=== PATIENT | female | born 1970 | race Caucasian/White ===

== ENCOUNTER → 2016-12-08 | Outpatient (CLI) | payer BC ==
[2016-06-20 21:30] VITALS: BP 145/82
[~2016-12-08] MED LIST: DULO60CA6 PO; Ipratropium/Albuterol Sulfate NEB; PRED5TAB19 PO; VARE1TAB20 PO; ZOLP10TA PO
--- NOTE | 2016-12-09 08:24 | RAD ---
Chest, 2 views, 12/08/2016: History: Shortness of breath Comparison is made to a study from 06/20/2016. The heart size and pulmonary vascularity are normal. No pulmonary infiltrates are seen. There is no evidence of pleural fluid. Mild spurring is present in the spine. IMPRESSION: No acute cardiopulmonary abnormality is detected.
== END | disposition home or self-care (01) ==
LOC: DXRADRC 12:15
PROVIDERS: ATTEND Nurse Practitioner Family
DX: R06.02 Shortness of breath (principal)
CPT/HCPCS: 71020

== ENCOUNTER → 2017-11-15 | Outpatient (CLI) | payer BC ==
[2016-06-20 21:30] VITALS: BP 145/82
[~2017-11-15] MED LIST changes: +IOHEXOL 300 MG/ML 75 ML VIAL. IV ONE
--- NOTE | 2017-11-15 09:17 | RAD ---
Indication: Tobacco use. Technique: CT chest with IV contrast with multiplanar reformats. Comparison: None Findings: Clear neck base. Heart is normal in size. No pericardial or pleural effusion. No axillary, mediastinal or hilar adenopathy. 2 mm nodule is seen in the right middle lobe (series 4 image 61). Central airways are patent. No interstitial abnormalities in the lungs. The visualized sections through the liver, spleen, pancreas, adrenals and kidneys are within normal limits. No suspicious bony lesion. Impression: No interstitial abnormalities. No suspicious pulmonary nodules. PQRS Compliance Statement: One or more of the following individualized dose reduction techniques were utilized for this examination: 1. Automated exposure control 2. Adjustment of the mA and/or kV according to patient size 3. Use of iterative reconstruction technique
--- NOTE | 2017-11-16 16:22 | RAD ---
DATE: 11/15/2017 EXAM: DIGITAL SCREEN BILAT W/CAD HISTORY: Routine screening COMPARISON: None available This study was interpreted with the benefit of Computerized Aided Detection (CAD). The breast parenchyma shows scattered fibroglandular densities. Breast parenchyma level B. FINDINGS: 2-D and 3-D tomosynthesis imaging was performed in CC and MLO projections. A small nodule with a hilar lucency in the axillary tail region of the left breast is compatible with a benign intramammary lymph node. No suspicious breast densities are seen. Minimal benign type calcification is noted. No suspicious microcalcifications are evident. IMPRESSION: There is no mammographic evidence of malignancy in either breast. BI-RADS CATEGORY: 2 BENIGN FINDING(S) RECOMMENDED FOLLOW-UP: 12M 12 MONTH FOLLOW-UP PQRS compliance statement: Patient information was entered into a reminder system with a target due date for the next mammogram. Mammography is a sensitive method for finding small breast cancers, but it does not detect them all and is not a substitute for careful clinical examination. A negative mammogram does not negate a clinically suspicious finding and should not result in delay in biopsying a clinically suspicious abnormality. "Our facility is accredited by the [employer] Mammography Program."
== END | disposition home or self-care (01) ==
LOC: CT 08:03
PROVIDERS: ATTEND Nurse Practitioner Family
DX: Z12.31 Encounter for screening mammogram for malignant neoplasm of breast (principal); Z72.0 Tobacco use
CPT/HCPCS: 71260; 77067; Q9967

== ENCOUNTER 2019-04-07 14:22 | Emergency (ER) | payer MEDICARE, BC ==
[~2019-04-07 14:22] MED LIST changes: -IOHEXOL 300 MG/ML 75 ML VIAL. IV ONE
[2019-04-07 14:35] VITALS: BP 149/103
--- NOTE | 2019-04-07 15:05 | PHYS DOC ---
Past History Past Medical History: Anxiety, Fibromyalgia, Migraines Past Surgical History: No Surgical History Smoking: Cigarettes Alcohol Use: None Drug Use: None Adult General Chief Complaint Chief Complaint: FACE PROBLEM HPI HPI Patient is a 48-year-old female presents with facial pain after falling into her coffee table approximately 36 hours ago. Pain is diffuse but centered around the nose. She is able to breathe through the nose. Denies any nosebleed. Denies any difficulty breathing. Denies any syncopal episode, loss of consciousness, or neck pain. Denies any weakness or numbness in her arms or legs. No significant relief with acetaminophen. Pain is moderate to severe.[] Review of Systems Review of Systems Constitutional: Denies fever or chills [] Eyes: Denies change in visual acuity, redness, or eye pain [] HENT: Denies nasal congestion or sore throat [] Respiratory: Denies cough or shortness of breath [] Cardiovascular: No chest pain or palpitations[] GI: Denies abdominal pain, nausea, vomiting, bloody stools or diarrhea [] : Denies dysuria or hematuria [] Musculoskeletal: Denies back pain or joint pain [] Integument: Denies rash or skin lesions [] Neurologic: Denies headache, focal weakness or sensory changes [] Endocrine: Denies polyuria or polydipsia [] All other systems were reviewed and found to be within normal limits, except as documented in this note. Allergies Allergies Allergies Coded Allergies Type Severity Reaction Last Updated Verified methocarbamol Allergy Intermediate 08/31/14 Yes Physical Exam Physical Exam Constitutional: Well developed, well nourished, no acute distress, non-toxic appearance. [] HENT: Normocephalic, atraumatic, bilateral external ears normal, oropharynx moist, no oral exudates, nose has tenderness to palpation in the proximal portion. There is no septal hematoma. Some congestion and increased flow noises with breathing.. [] Eyes: PERRLA, EOMI, conjunctiva normal, no discharge. [] Neck: Normal range of motion, no tenderness, supple, no stridor. [] Cardiovascular:Heart rate regular rhythm, no murmur [] Lungs & Thorax: Bilateral breath sounds clear to auscultation [] Abdomen: Bowel sounds normal, soft, no tenderness, no masses, no pulsatile mas ses. [] Skin: Warm, dry, no erythema, no rash. [] Back: No tenderness, no CVA tenderness. [] Extremities: No tenderness, no cyanosis, no clubbing, ROM intact, no edema. [] Neurologic: Alert and oriented X 3, normal motor function, normal sensory function, no focal deficits noted. [] Psychologic: Affect normal, judgement normal, mood normal. [] Current Patient Data Vital Signs Vital Signs Date Time Temp Pulse Resp B/P (MAP) Pulse Ox O2 Delivery O2 Flow Rate FiO2 04/07/19 14:35 104 18 100 Room Air EKG EKG [] Radiology/Procedures Radiology/Procedures PROCEDURE: CT MAXILLOFACIAL WO CONTRAST CT MAXILLOFACIAL WO CONTRAST dated 04/07/2019 3:08 PM Indication: Facial pain after falling into a table. Comparison: No comparison is available. Technique: Helical noncontrast images were obtained. Sagittal and coronal reconstructions were performed. One or more of the following individualized dose reduction techniques were utilized for this examination: 1. Automated exposure control 2. Adjustment of the mA and/or kV according to patient size 3. Use of iterative reconstruction technique Findings: There appears to be a slightly depressed fracture of the nasal bone near the tip. No other facial fracture is seen. The nasal septum is deviated some to the right. The orbital floors appear intact. There is some fluid in the sphenoid sinus. The sinuses are otherwise clear. There is some pneumatization of the middle turbinates bilaterally IMPRESSION: Suspected minimally displaced nasal fracture. No other facial fracture. [] Course & Med Decision Making Course & Med Decision Making Pertinent Labs and Imaging studies reviewed. (See chart for details) ED course: Patient arrived, was placed in bed, and tolerated exam well. She was transported to and from radiology with any complications. After the return of the imaging findings, these were discussed with the patient and her partner who voiced understanding. All questions were answered. She was discharged in improved condition Medical decision making: There is no evidence of a septal hematoma. No evidence of additional facial fractures be on the nasal bones. No evidence of nonaccidental trauma. No evidence of intractable pain.[] Dragon Disclaimer Dragon Disclaimer This electronic medical record was generated, in whole or in part, using a voice recognition dictation system. Departure Departure: Impression: Primary Impression: Nasal fracture Disposition: HOME, SELF-CARE Condition: STABLE Referrals: PCP,NO (PCP) Patient Instructions: Nasal Fracture Additional Instructions: Follow-up with your regular doctor in 2 days. If you do not have regular doctor list of local clinics will be provided for you. Return to the ER if worsening pain, fever of more than 101�, or any other concerns. Scripts Oxaprozin (OXAPROZIN) 600 Mg Tablet 600 MG PO BID for pain, #20 TAB Prov: DELFINO JOY DO 04/07/19 Problem Qualifiers Primary Impression: Nasal fracture Encounter type: initial encounter Fracture type: closed Qualified Codes: S02.2XXA - Fracture of nasal bones, initial encounter for closed fracture DELFINO JOY DO Apr 07, 2019 15:05
[2019-04-07] MEDS ORDERED: IBUPROFEN 600 MG TABLET. PO ONE (15:15)
--- NOTE | 2019-04-07 15:29 | RAD ---
CT MAXILLOFACIAL WO CONTRAST dated 04/07/2019 3:08 PM Indication: Facial pain after falling into a table. Comparison: No comparison is available. Technique: Helical noncontrast images were obtained. Sagittal and coronal reconstructions were performed. One or more of the following individualized dose reduction techniques were utilized for this examination: 1. Automated exposure control 2. Adjustment of the mA and/or kV according to patient size 3. Use of iterative reconstruction technique Findings: There appears to be a slightly depressed fracture of the nasal bone near the tip. No other facial fracture is seen. The nasal septum is deviated some to the right. The orbital floors appear intact. There is some fluid in the sphenoid sinus. The sinuses are otherwise clear. There is some pneumatization of the middle turbinates bilaterally IMPRESSION: Suspected minimally displaced nasal fracture. No other facial fracture. Electronically signed by: Vasquez Kevin Jr., MD (04/07/2019 3:26 PM) [facility]
[2019-04-07] MEDS ORDERED: OXAP600T2 PO (15:53)
== END 2019-04-07 15:56 | disposition home or self-care (01) ==
LOC: ER 14:22
DX: S02.2XXA Fracture of nasal bones, initial encounter for closed fracture (principal); M79.7 Fibromyalgia; G43.909 Migraine, unspecified, not intractable, without status migrainosus; F17.210 Nicotine dependence, cigarettes, uncomplicated; Z88.8 Allergy status to other drugs, medicaments and biological substances; W17.89XA Other fall from one level to another, initial encounter; Y93.89 Activity, other specified; Y92.89 Other specified places as the place of occurrence of the external cause; Y99.8 Other external cause status
CPT/HCPCS: 70486; 99284-25

== ENCOUNTER 2019-05-22 16:30 | Emergency (ER) | payer OTHER, BC, MEDICARE ==
[~2019-05-22] VITALS: Ht 167.6 cm; Wt 63.5 kg
[~2019-05-22 16:30] MED LIST changes: +OXAP600T2 PO
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
[2019-05-22] MEDS ORDERED: KETOROLAC 15 MG/ML VIAL. IV ONE (17:00)
[2019-05-22 17:06] VITALS: BP 161/115
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
[2019-05-22] MEDS ORDERED: ORPH-16 PO (17:28)
[2019-05-22] MEDS ORDERED: MELO7.5T29 PO (17:28)
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
== END 2019-05-22 17:37 | disposition home or self-care (01) ==
LOC: ER 16:30
DX: S16.1XXA Strain of muscle, fascia and tendon at neck level, initial encounter (principal); M25.512 Pain in left shoulder; M54.6 Pain in thoracic spine; M79.7 Fibromyalgia; G43.909 Migraine, unspecified, not intractable, without status migrainosus; F17.210 Nicotine dependence, cigarettes, uncomplicated; Z88.8 Allergy status to other drugs, medicaments and biological substances; V49.49XA Driver injured in collision with other motor vehicles in traffic accident, initial encounter; Y93.I9 Activity, other involving external motion; Y92.488 Other paved roadways as the place of occurrence of the external cause; Y99.8 Other external cause status
CPT/HCPCS: 71045; 72040; 73030; 96374; 99284; J1885

== ENCOUNTER → 2020-08-06 | Outpatient (CLI) | payer BC, MEDICARE ==
[~2020-08-06] MED LIST changes: +CYCL-331 PO; +DEXT20TA24 PO; +DIAZ5TAB4 PO; +GABA-586 PO; +MELO7.5T29 PO; +NICO1PAT25 TP; +ORPH-16 PO; +SERT100T PO
--- NOTE | 2020-08-06 12:48 | RAD ---
Chest radiograph 08/06/2020 12:10 PM INDICATION: Pneumonia COMPARISON: None available TECHNIQUE: Frontal and lateral views of the chest are provided. FINDINGS: The cardiomediastinal silhouette is within normal limits. There are no pleural effusions. There is no pulmonary vascular congestion. There is no pneumothorax. The lungs are clear. No significant osseous abnormality is identified. IMPRESSION: No acute cardiopulmonary process. Electronically signed by: Ann Marie Tsang MD (08/06/2020 12:46 PM) [id number]
[2020-08-06 13:14] LABS: BASO % 0 % (0-3); EOS % 0 % (0-3); HEMATOCRIT 43.9 % (36.0-47.0); HEMOGLOBIN 14.6 g/dL (12.0-15.5); LYMPH # 1.6 x10^3/uL (1.0-4.8); LYMPH % 8 % (24-48); MEAN CORPUSCULAR HEMOGLOBIN 30 pg (25-35); MEAN CORPUSCULAR HGB CONC 33 g/dL (31-37); MEAN CORPUSCULAR VOLUME 91 fL (79-100); MONO # 0.4 x10^3/uL (0.0-1.1); MONO % 2 % (0-9); NEUT # 18.3 x10^3uL (1.8-7.7); NEUT % 90 % (31-73); PLATELET COUNT 311 x10^3/uL (140-400); RED BLOOD COUNT 4.83 x10^6/uL (3.50-5.40); WHITE BLOOD COUNT 20.4 x10^3/uL (4.0-11.0)
[2020-08-06 14:10] LABS: ALBUMIN 4.2 g/dL (3.4-5.0); ALBUMIN/GLOBULIN RATIO 1.1 (1.0-1.7); ALK PHOS 67 U/L (46-116); ALT (SGPT) 20 U/L (14-59); ANION GAP 12 (6-14); AST (SGOT) 18 U/L (15-37); BLOOD UREA NITROGEN 11 mg/dL (7-20); BUN/CREATININE RATIO 12 (6-20); CALCIUM 10.3 mg/dL (8.5-10.1); CARBON DIOXIDE 23 mmol/L (21-32); CHLORIDE 103 mmol/L (98-107); CREATININE 0.9 mg/dL (0.6-1.0); GFR 66.5; GLUCOSE 126 mg/dL (70-99); POTASSIUM 4.1 mmol/L (3.5-5.1); SODIUM 138 mmol/L (136-145); TOTAL BILIRUBIN 0.4 mg/dL (0.2-1.0); TOTAL PROTEIN 7.9 g/dL (6.4-8.2)
[2020-08-06 14:16] LABS: C REACTIVE PROTEIN < 0.5 mg/L (0-3.3)
[2020-08-06 14:51] LABS: % LYMPHS 11 % (24-48); % MONOS 2 % (0-10); % SEGS 87 % (35-66)
[2020-08-06 14:52] LABS: PLT ESTIMATE ADEQUATE (ADEQUATE)
== END ==
LOC: LAB 12:06
PROVIDERS: ATTEND Family Medicine
DX: J18.9 Pneumonia, unspecified organism (principal)
CPT/HCPCS: 36415; 71046; 80053; 85007; 85025; 86140

== ENCOUNTER → 2020-08-06 | Outpatient (CLI) | payer BC, MEDICARE ==
[~2020-08-06] MED LIST changes: +AZIT250T6 PO; +BUTA1TAB23 PO; +FERR325T72 PO; +LACT1CAP19 PO; +PRED5TAB PO; +TEMA15CA PO
[2020-08-07 09:30] VITALS: BP 123/80
== END ==
LOC: LAB 12:00
PROVIDERS: ATTEND Family Medicine
DX: Z01.812 Encounter for preprocedural laboratory examination (principal); Z20.828 Contact with and (suspected) exposure to other viral communicable diseases
CPT/HCPCS: U0003

== ENCOUNTER 2020-10-19 20:58 | Emergency (ER) | payer BC, MEDICARE ==
[~2020-10-19] VITALS: Ht 165.1 cm; Wt 76.0 kg
[2020-10-19] MEDS ORDERED: CONTRAST GIVEN. MC PRN (21:30)
[2020-10-19 21:42] LABS: BASO % 0 % (0-3); EOS # 0.3 x10^3/uL (0.0-0.7); EOS % 2 % (0-3); HEMATOCRIT 41.2 % (36.0-47.0); HEMOGLOBIN 13.9 g/dL (12.0-15.5); LYMPH # 4.6 x10^3/uL (1.0-4.8); LYMPH % 43 % (24-48); MEAN CORPUSCULAR HEMOGLOBIN 31 pg (25-35); MEAN CORPUSCULAR HGB CONC 34 g/dL (31-37); MEAN CORPUSCULAR VOLUME 92 fL (79-100); MONO # 0.5 x10^3/uL (0.0-1.1); MONO % 5 % (0-9); NEUT # 5.3 x10^3uL (1.8-7.7); NEUT % 50 % (31-73); PLATELET COUNT 271 x10^3/uL (140-400); RED BLOOD COUNT 4.46 x10^6/uL (3.50-5.40); RED CELL DISTRIBUTION WIDTH 13.5 % (11.5-14.5); WHITE BLOOD COUNT 10.7 x10^3/uL (4.0-11.0)
[2020-10-19 21:51] LABS: CALCIUM 9.8 mg/dL (8.5-10.1); CREATININE 0.8 mg/dL (0.6-1.0); GFR 76.2; POTASSIUM 3.1 mmol/L (3.5-5.1)
[2020-10-19 21:56] LABS: ALBUMIN 3.9 g/dL (3.4-5.0); ALBUMIN/GLOBULIN RATIO 1.2 (1.0-1.7); MAGNESIUM 1.8 mg/dL (1.8-2.4); TOTAL BILIRUBIN 0.3 mg/dL (0.2-1.0); TOTAL PROTEIN 7.1 g/dL (6.4-8.2)
[2020-10-19] MEDS ORDERED: IOHEXOL 350 MG/ML 100 ML VIAL. IV ONE (22:00)
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
--- NOTE | 2020-10-19 22:25 | RAD ---
LEFT SHOULDER , 3 VIEWS Clinical Indication: Reason: pain / Comparison: None. Findings: There is no acute fracture or dislocation. The acromioclavicular and glenohumeral joints are intact. The visualized lung is clear. There is no evidence of a displaced rib fracture. There is no soft tiss ue abnormality. IMPRESSION: No acute fracture or dislocation. Electronically signed by: Piter Hopper MD (10/19/2020 10:22 PM) [facility]
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
[2020-10-19 23:16] LABS: BARBITURATES NEG (NEG); BENZODIAZEPINES POS (NEG); CANNABINOIDS NEG (NEG); COCAINE NEG (NEG); METHADONE NEG (NEG); OPIATES NEG (NEG); PHENCYCLIDINE NEG (NEG)
[2020-10-19 23:20] LABS: BILIRUBIN,URINE NEG (NEG); CLARITY,URINE CLEAR; COLOR,URINE YELLOW; GLUCOSE,URINE NEG (NEG)
[2020-10-19 23:21] LABS: BACTERIA,URINE FEW /HPF (0-FEW); NITRITE,URINE NEG (NEG); RBC,URINE 0 /HPF (0-2); SQUAMOUS EPITHELIAL CELL,UR FEW /LPF; UROBILINOGEN,URINE 0.2 mg/dL (0.2 mg/dL)
[2020-10-19 23:23] LABS: AMPHETAMINE/METHAMPHETAMINE NEG (NEG)
--- NOTE | 2020-10-19 23:34 | PHYS DOC ---
Past History Past Medical History: Anxiety, Fibromyalgia, Migraines, TIA Past Surgical History: Hysterectomy Smoking: Cigarettes Alcohol Use: None Drug Use: None Adult General Chief Complaint Chief Complaint: NEURO SYMPTOMS/DEFICITS HPI HPI Patient is a 50-year-old female with a past medical history significant for TIA, migraines, and anxiety who presents with a chief complaint of seizure activity. Between and patient, the story is that they were at home watching TV and she went to do laundry and as she was walking back her legs began to shake bilaterally. States that they felt weak bilaterally and her stated he grabbed her and she began to shake all over. States it appeared that she was having a seizure. States that this lasted about 30 seconds. Denies any tongue biting or urination. States this is never happened to her before. Both and patient state that after the episode was over and she was awake she seemed confused about what it happened and was asking why EMS was in her house and what was going on and why she was going to the hospital. Patient herself states that she did feel foggy afterwards. Denies any recent travel, traumas, fevers, known ill contacts. States that in July she did spend some time in the hospital for pneumonia but was Covid negative. States she took antibiotics for that up until about a week ago. Denies any alcohol or drug use. States she has been eating and drinking normally for her. States has been making urine and stool normally for her. Review of Systems Review of Systems Review of systems otherwise unremarkable except noted in HPI Current Medications Current Medications Current Medications Medications (Trade) Dose Ordered Sig/Nehal Start Time Stop Time Status Last Admin Dose Admin Info (Do NOT chart on this entry -- for MONITORING) 1 each PRN DAILY PRN 10/19/20 21:30 10/21/20 21:29 Iohexol (Omnipaque 350 Mg/ml) 75 ml 1X ONCE 10/19/20 22:00 10/19/20 22:01 DC 10/19/20 21:39 75 ML Allergies Allergies Allergies Coded Allergies Type Severity Reaction Last Updated Verified methocarbamol Allergy Intermediate 10/19/20 Yes Physical Exam Physical Exam Constitutional: Well developed, well nourished, no acute distress, non-toxic appearance. [] HENT: Normocephalic, atraumatic, bilateral external ears normal, oropharynx moist, no oral exudates, nose normal. [] Eyes: PERRLA, EOMI, conjunctiva normal, no discharge. [] Neck: Normal range of motion, no tenderness, supple, no stridor. [] Cardiovascular:Heart rate regular rhythm, no murmur [] Lungs & Thorax: Bilateral breath sounds clear to auscultation [] Abdomen: soft, no tenderness, no masses, no pulsatile masses. [] Skin: Warm, dry, no erythema, no rash. [] Back: No tenderness, Extremities: No tenderness, no cyanosis, no clubbing, ROM intact, no edema. [] Neurologic: Alert and oriented X 3, normal motor function, normal sensory function, no focal deficits noted. [] Psychologic: Affect normal, judgement normal, mood normal. [] Current Patient Data Vital Signs Vital Signs Date Time Temp Pulse Resp B/P (MAP) Pulse Ox O2 Delivery O2 Flow Rate FiO2 10/19/20 20:58 98.6 106 16 138/92 (107) 97 Room Air Lab Results Laboratory Tests Test 10/19/20 21:15 10/19/20 22:15 White Blood Count 10.7 x10^3/uL (4.0-11.0) Red Blood Count 4.46 x10^6/uL (3.50-5.40) Hemoglobin 13.9 g/dL (12.0-15.5) Hematocrit 41.2 % (36.0-47.0) Mean Corpuscular Volume 92 fL (79-100) Mean Corpuscular Hemoglobin 31 pg (25-35) Mean Corpuscular Hemoglobin Concent 34 g/dL (31-37) Red Cell Distribution Width 13.5 % (11.5-14.5) Platelet Count 271 x10^3/uL (140-400) Neutrophils (%) (Auto) 50 % (31-73) Lymphocytes (%) (Auto) 43 % (24-48) Monocytes (%) (Auto) 5 % (0-9) Eosinophils (%) (Auto) 2 % (0-3) Basophils (%) (Auto) 0 % (0-3) Neutrophils # (Auto) 5.3 x10^3uL (1.8-7.7) Lymphocytes # (Auto) 4.6 x10^3/uL (1.0-4.8) Monocytes # (Auto) 0.5 x10^3/uL (0.0-1.1) Eosinophils # (Auto) 0.3 x10^3/uL (0.0-0.7) Basophils # (Auto) 0.0 x10^3/uL (0.0-0.2) Sodium Level 145 mmol/L (136-145) Potassium Level 3.1 mmol/L (3.5-5.1) L Chloride Level 106 mmol/L (98-107) Carbon Dioxide Level 27 mmol/L (21-32) Anion Gap 12 (6-14) Blood Urea Nitrogen 8 mg/dL (7-20) Creatinine 0.8 mg/dL (0.6-1.0) Estimated GFR (Cockcroft-Gault) 76.2 BUN/Creatinine Ratio 10 (6-20) Glucose Level 95 mg/dL (70-99) Lactic Acid Level 0.7 mmol/L (0.4-2.0) Calcium Level 9.8 mg/dL (8.5-10.1) Magnesium Level 1.8 mg/dL (1.8-2.4) Total Bilirubin 0.3 mg/dL (0.2-1.0) Aspartate Amino Transferase (AST) 19 U/L (15-37) Alanine Aminotransferase (ALT) 23 U/L (14-59) Alkaline Phosphatase 68 U/L (46-116) Troponin I Quantitative < 0.017 ng/mL (0-0.055) Total Protein 7.1 g/dL (6.4-8.2) Albumin 3.9 g/dL (3.4-5.0) Albumin/Globulin Ratio 1.2 (1.0-1.7) Ethyl Alcohol Level < 10 mg/dL (0-10) Urine Collection Type Unknown Urine Color Yellow Urine Clarity Clear Urine pH 7.0 Urine Specific [place] 1.010 Urine Protein Neg (NEG-TRACE) Urine Glucose (UA) Neg mg/dL (NEG) Urine Ketones (Stick) Neg mg/dL (NEG) Urine Blood Neg (NEG) Urine Nitrite Neg (NEG) Urine Bilirubin Neg (NEG) Urine Urobilinogen Dipstick 0.2 mg/dL (0.2 mg/dL) Urine Leukocyte Esterase Small (NEG) Urine RBC 0 /HPF (0-2) Urine WBC 1-4 /HPF (0-4) Urine Squamous Epithelial Cells Few /LPF Urine Bacteria Few /HPF (0-FEW) Urine Opiates Screen Neg (NEG) Urine Methadone Screen Neg (NEG) Urine Barbiturates Neg (NEG) Urine Phencyclidine Screen Neg (NEG) Urine Amphetamine/Methamphetamine Neg (NEG) Urine Benzodiazepines Screen Pos (NEG) Urine Cocaine Screen Neg (NEG) Urine Cannabinoids Screen Neg (NEG) Urine Ethyl Alcohol Neg (NEG) EKG EKG QRS of 86, QTC of 442, no STEMI,Rate of 90 [] Radiology/Procedures Radiology/Procedures [] FINDINGS: CTA neck: Visualized portions of the thoracic aorta are unremarkable. Standard three- vessel arch anatomy. Right common carotid artery is patent without evidence of stenosis, occlusion or aneurysm. Cervical segment of the right internal carotid artery is patent without evidence of stenosis, occlusion or aneurysm. Left common carotid artery is patent without evidence of stenosis cervical segment of the left internal carotid artery is patent without evidence of patrick nosis, occlusion or aneurysm. Right vertebral artery is patent to the basilar confluence without evidence of stenosis, occlusion or aneurysm. Left vertebral artery is patent to the basilar confluence without evidence of stenosis, occlusion or aneurysm. Visualized paraspinal soft tissues are unremarkable. CTA head: Intracranial segments of the right internal carotid artery are patent without evidence of stenosis, occlusion or aneurysm. Right MCA is patent. Right ALIREZA is patent. Intracranial segments of the left internal carotid artery are patent without evidence of stenosis, occlusion or aneurysm. Left MCA is patent. Left ALIREZA is p atent. Basilar artery is patent without evidence of stenosis, occlusion or aneurysm. student records specialist are patent bilaterally. IMPRESSION: Patent intracranial cervical arterial vasculature without evidence of stenosis, occlusion or aneurysm. Heart Score Risk Factors: Risk Factors: DM, Current or recent (<one month) smoker, HTN, HLP, family history of CAD, obesity. Risk Scores: Risk Factors: DM, Current or recent (<one month) smoker, HTN, HLP, family history of CAD, obesity. Course & Med Decision Making Course & Med Decision Making Patient is a 50-year-old female who presents with reported seizure activity at home Vital signs initially notable for tachycardia which resolved in the ED. Normal blood sugar. EKG noted above that was normal. NIH of 0. Cranial nerves appeared intact. Patient alert and oriented to person, and place and time. Laboratory analysis not concerning. Drug screen notable for benzodiazepines, patient states she has a prescription for 5 mg Valium which she takes occasionally for anxiety. States she took 1 earlier this morning. Urinalysis not concerning. Given differential diagnosis including but not limited to seizure versus stroke CTA of the head and neck with CT of the head obtained. No acute bleeding, masses, skull fractures. No aneurysms or clots appreciated. Patent arteries. On reassessment patient was feeling better, able to sit up, stand and walk without issue and had normal vital signs. Patient able to eat without issue. Stated she was feeling better. Discussed all findings with family and offered admission to the hospital for continued evaluation including probable neuro consultation to discern whether an MRI or EEG is needed. Patient family stated since she was feeling better, her labs were good and imaging was good that she would just rather go home and go to bed and call her primary care physician Dr. Mendez in the morning to set up a follow-up with him and an outpatient follow-up with neurology. Discussed the serious risks of this with the family including further seizures, injury to the brain, trauma if she has a seizure and fall, driving if she has a seizure and advised not to drive until cleared by her primary care physician or neurologist. Other risks include significant disability and/or given the unknown etiology of her possible seizures. Family verbalized understanding, and verbalized understanding of the risks and decided to go home. [] Dragon Disclaimer Dragon Disclaimer This electronic medical record was generated, in whole or in part, using a voice recognition dictation system. Departure Departure: Impression: Primary Impression: Seizure-like activity Additional Impression: Syncope Disposition: 01 DC HOME SELF CARE/HOMELESS Condition: GOOD Referrals: ALESSANDRA COSTELLO (PCP) Patient Instructions: Seizure, Adult Additional Instructions: Please read all the attached information. As discussed please call your primary care physician first thing in the morning to discuss your ED visit and set up a follow-up as soon as possible hopefully tomorrow and also discussed need for neurology consultation, work-up, MRI and/or EEG as discussed. As discussed please do not operate heavy machinery, drive or be by your self until you see your primary care physician and/or neurologist and are cleared as there are significant risks if you are having seizures and do any of these activities. Please come back to the emergency department immediately as discussed for any new or concerning symptoms. Problem Qualifiers SENA ELLIOTT MD Oct 19, 2020 23:34
[2020-10-20] MEDS ORDERED: ACETAMINOPHEN 500 MG TABLET PO ONE
[2020-10-20 00:02] VITALS: BP 119/88
--- NOTE | 2020-10-20 00:52 | EKG ---
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
== END 2020-10-20 00:20 | disposition home or self-care (01) ==
LOC: ER 20:58
DX: R56.9 Unspecified convulsions (principal); R55 Syncope and collapse; M25.512 Pain in left shoulder; G43.909 Migraine, unspecified, not intractable, without status migrainosus; F17.210 Nicotine dependence, cigarettes, uncomplicated; Z86.73 Personal history of transient ischemic attack (TIA), and cerebral infarction without residual deficits; Z88.8 Allergy status to other drugs, medicaments and biological substances
CPT/HCPCS: 36415; 70450; 70496; 70498; 73030; 80053; 80307; 81001; 83605; 83735; 84443; 84484; 85025; 87086; 93005; 99285; G0480; Q9967

== ENCOUNTER → 2020-11-23 | Outpatient (CLI) | payer BC, MEDICARE ==
[2020-11-25 19:10] LABS: ANA INTERP Negative (.)
== END ==
LOC: LAB 15:32
PROVIDERS: ATTEND Family Medicine
DX: M79.7 Fibromyalgia (principal); M06.9 Rheumatoid arthritis, unspecified
CPT/HCPCS: 36415; 85651; 86038; 86431

== ENCOUNTER 2021-02-22 23:34 | Emergency (ER) | payer BC, MEDICARE ==
[~2021-02-22] VITALS: Ht 167.6 cm; Wt 72.7 kg
[2021-02-22 23:50] VITALS: BP 115/74
--- NOTE | 2021-02-22 23:54 | PHYS DOC ---
Past History Past Medical History: Anxiety, Fibromyalgia, Migraines, TIA Past Surgical History: Hysterectomy Smoking: Cigarettes Alcohol Use: None Drug Use: None Adult General HPI HPI Patient is 50-year-old female with a past medical history significant for anxiety and fibromyalgia who presents with a chief complaint of lightheadedness and nausea which started earlier today. States she has this occasionally but has been a few week since her last episode. Denies any recent traumas, travels, illnesses, fevers, chest pain, shortness of breath, abdominal pain, dysuria, hematuria, blood in the stool or diarrhea. Denies any alcohol or drug use. Denies any recent dyspnea on exertion, orthopnea, PND or edema. Denies any tr ouble ambulating. Denies any numbness/weakness/tingling. Review of Systems Review of Systems Review of systems otherwise unremarkable except noted in HPI Allergies Allergies Allergies Coded Allergies Type Severity Reaction Last Updated Verified methocarbamol Allergy Intermediate 10/19/20 Yes Physical Exam Physical Exam Constitutional: Well developed, well nourished, no acute distress, non-toxic appearance. [] HENT: Normocephalic, atraumatic, oropharynx moist, no oral exudates, Eyes: PERRLA, EOMI, conjunctiva normal, no discharge. [] Neck: Normal range of motion, no tenderness, supple, no stridor. [] Cardiovascular:Heart rate regular rhythm, no murmur [] Lungs & Thorax: Bilateral breath sounds clear to auscultation [] Abdomen: soft, no tenderness, no masses, no pulsatile masses. [] Skin: Warm, dry, no erythema, no rash. [] Back: no CVA tenderness. [] Extremities: No tenderness, no cyanosis, no clubbing, ROM intact, no edema. [] Neurologic: Alert and oriented X 3, normal motor function, normal sensory function, able to sit, stand or walk without issue no focal deficits noted. [] Psychologic: Affect normal, judgement normal, mood normal. [] EKG EKG Normal rate, normal rhythm, normal QRS, normal QTC, no STEMI [] Radiology/Procedures Radiology/Procedures [] Heart Score C/O Chest Pain: No Risk Factors: Risk Factors: DM, Current or recent (<one month) smoker, HTN, HLP, family history of CAD, obesity. Risk Scores: Risk Factors: DM, Current or recent (<one month) smoker, HTN, HLP, family h istory of CAD, obesity. Course & Med Decision Making Course & Med Decision Making Patient is a 50-year-old female who presents with lightheadedness and nausea Vital signs not concerning. Physical exam noted above. Patient placed on the monitor with IV access established and IV fluid begun. Given Zofran for nausea. Diazepam given. EKG noted above in not concerning. Laboratory analysis not concerning. Urinalysis not concerning. Urine negative. On reassessment after resuscitation, patient asymptomatic and feeling better and ready to be discharged home. Advised to follow-up in the morning with primary care physician. Gave return precautions to the ED. Patient grateful, verbalized understanding and agreed with plan of discharge. Dragon Disclaimer Dragon Disclaimer This electronic medical record was generated, in whole or in part, using a voice recognition dictation system. Departure Departure: Impression: Primary Impression: Lightheaded Additional Impression: Nausea Disposition: HOME / SELF CARE / HOMELESS Condition: GOOD Referrals: ALESSANDRA COSTELLO (PCP) Patient Instructions: Dizziness, Nausea, Adult Additional Instructions: Thank you for coming into the emergency department tonight and allowing us to take care of you. Please read all the attached information very carefully to go back over what we discussed. Please be sure to eat and drink appropriately throughout the day and stay well-hydrated. Please take any and all medications that you have as prescribed. Please call your primary care physician first thing in the morning to update on your ED visit and set up a follow-up appointment. Please come back to the ED with new or concerning symptoms as discussed. Problem Qualifiers SENA ELLIOTT MD Feb 22, 2021 23:53
[2021-02-23] MEDS ORDERED: ALBUTEROL SULFATE 8GM INHALER. ONE (00:26)
[2021-02-23] MEDS ORDERED: ONDANSETRON PF 4 MG/2 ML VIAL. IVP ONE (00:30)
[2021-02-23] MEDS ORDERED: IV RINGERS SOLUTION,LACTATED 1,000 ML IV ONE (00:30)
[2021-02-23 00:52] LABS: CALCIUM 9.3 mg/dL (8.5-10.1); CREATININE 0.7 mg/dL (0.6-1.0); GFR 88.9; POTASSIUM 3.6 mmol/L (3.5-5.1)
[2021-02-23 01:50] LABS: BILIRUBIN,URINE NEG (NEG); CLARITY,URINE CLEAR; COLOR,URINE STRAW; GLUCOSE,URINE NEG (NEG); NITRITE,URINE NEG (NEG); UROBILINOGEN,URINE 0.2 mg/dL (0.2 mg/dL)
[2021-02-23 01:51] LABS: BACTERIA,URINE 0 /HPF (0-FEW); RBC,URINE RARE /HPF (0-2)
[2021-02-23 02:00] LABS: HEMOGLOBIN 12.9 g/dL (12.0-15.5); RED BLOOD COUNT 4.19 x10^6/uL (3.50-5.40); RED CELL DISTRIBUTION WIDTH 13.2 % (11.5-14.5); WHITE BLOOD COUNT 11.1 x10^3/uL (4.0-11.0)
[2021-02-23] MEDS ORDERED: diazePAM 5 MG TABLET. PO ONE (02:00)
--- NOTE | 2021-02-23 06:36 | EKG ---
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
== END 2021-02-23 02:30 | disposition home or self-care (01) ==
LOC: ER 23:34
DX: R42 Dizziness and giddiness (principal); R11.0 Nausea; F41.9 Anxiety disorder, unspecified; M79.7 Fibromyalgia; G43.909 Migraine, unspecified, not intractable, without status migrainosus; F17.210 Nicotine dependence, cigarettes, uncomplicated; Z86.73 Personal history of transient ischemic attack (TIA), and cerebral infarction without residual deficits; Z88.8 Allergy status to other drugs, medicaments and biological substances
CPT/HCPCS: 36415; 80048; 81001; 84484; 85027; 87086; 93005; 96361; 96374; 99284; J2405; J7120

== ENCOUNTER 2021-06-29 13:22 | Emergency (ER) | payer BC, MEDICARE ==
[~2021-06-29] VITALS: Ht 167.6 cm; Wt 81.8 kg
[~2021-06-29 13:22] MED LIST changes: -CYCL-331 PO; +CYCL10TA19 PO; -DULO60CA6 PO; +DULO60CA7 PO
[2021-06-29] MEDS ORDERED: KETOROLAC 60 MG/2 ML VIAL. IM ONE (13:45)
--- NOTE | 2021-06-29 14:12 | RAD ---
EXAM: 3 Views Right Shoulder DATE: 06/29/2021 2:08 PM INDICATION: Reason: fall / Spl. Instructions: / History: COMPARISON: No Prior FINDINGS: There is no evidence for acute fracture or dislocation. AC joint is congruent. Humeral head is not hi gh riding. Patchy opacities medial right lung base possibly atelectasis although developing consolidation contus ion could have this appearance. IMPRESSION: 1. No acute fracture or dislocation. 2. Patchy opacities medial right lung base possibly atelectasis although developing consolidation co ntusion could have this appearance. Electronically signed by: Michel Galvan MD (06/29/2021 2:09 PM) [id number]
--- NOTE | 2021-06-29 14:36 | PHYS DOC ---
Past History Past Medical History: Anxiety, Fibromyalgia, Migraines, TIA Additional Past Medical Histor: Chronic Pain, RA, Panic attacks, peripheral neuropathy, Sepsis (ADRIANNE AREVALO) Past Surgical History: Hysterectomy, Other Additional Past Surgical Histo: Left knee sx (ADRIANNE AREVALO) Smoking: Cigarettes Alcohol Use: Occasionally Drug Use: None Social History Narrative: used cbd yesterday (ADRIANNE AREVALO) General Adult EDM: Chief Complaint: MECHANICAL FALL HPI: HPI: Patient is a 51 year old female with extensive medical history who presents with multiple sites of right-sided body pain status post a fall at home. Patient states she was "getting ready," when she tripped and fell in her mod room. Daniel boothe states that she hit her head on the pantry cabinet, but does not know if she lost consciousness. She rates her pain 7/10 to her neck, head, right shoulder, right hip, right knee, right ankle. Patient states that she took a Xanax at 0930 this morning as well as had a CBD skittle candy today. Patient states that she woke up today with a migraine, but this was prior to her fall and unrelated. She denies change in visual acuity, visual field deficits, nausea, vomiting, disorientation. (ADRIANNE AREVALO) Review of Systems: Review of Systems: 12 systems reviewed. ROS negative except as mentioned in HPI. (ADRIANNE AREVALO) Current Medications: Current Meds: Current Medications Medications (Trade) Dose Ordered Sig/Nehal Start Time Stop Time Status Last Admin Dose Admin Ketorolac Tromethamine (Toradol Im) 60 mg 1X ONCE 06/29/21 13:45 06/29/21 13:47 DC 06/29/21 14:18 60 MG (ADRIANNE AREVALO) Allergies: Allergies: Allergies Coded Allergies Type Severity Reaction Last Updated Verified methocarbamol Allergy Intermediate 10/19/20 Yes latex Allergy Mild Rash 02/23/21 Yes (ADRIANNE AREVALO) Physical Exam: PE: Constitutional: Well developed, well nourished, non-toxic appearance. HENT: Normocephalic, atraumatic, bilateral external ears normal, oropharynx moist, no oral exudates, nose normal. Eyes: PERRLA, EOMI, conjunctiva normal, no discharge. Neck: Normal range of motion, no obvious deformity, no midline tenderness, right-sided paraspinal tenderness appreciated. Cardiovascular: Heart rate regular rhythm, no murmur. Lungs & Thorax: Bilateral breath sounds clear to auscultation. Skin: Warm, dry, no erythema, no rash, no abrasions, no lacerations. Back: No step-offs, no midline tenderness, bilateral lumbar paraspinal tendernes s appreciated. Extremities: Right upper extremity range of motion grossly intact, no tenderness to palpation. Right lower extremity hip flexion causes low back pain, flexion extension intact at the knee, active range of motion of ankle limited secondary to pain, passive range of motion intact. Left side extremities without tenderness, cyanosis, clubbing, edema, range of motion deficits. Neurovascular intact in extremities x4. Neurologic: Alert and oriented x4, normal motor function, normal sensory function, no focal deficits noted. (ADRIANNE AREVALO) Current Patient Data: Vital Signs: VS - Last 72 Hours Date Time Temp Pulse Resp B/P (MAP) Pulse Ox O2 Delivery O2 Flow Rate FiO2 06/29/21 15:30 75 16 101/78 (86) 100 Room Air 06/29/21 15:00 83 16 115/54 (74) 96 Room Air 06/29/21 13:22 98.7 99 16 139/91 (107) 100 Room Air (ADRIANNE AREVALO) Radiology/Procedures: Radiology/Procedures: PROCEDURE: CT LUMBAR SPINE WO CONTRAST EXAM: CT lumbar spine without IV contrast CLINICAL HISTORY:Reason: FALL, LOW BACK PAIN / Spl. Instructions: / History: COMPARISON: None available. TECHNIQUE: Helical CT was performed through the lumbar spine. Axial, coronal and sagittal reformatted images were generated. PQRS compliance statement - One or more of the following individualized dose reduction techniques were utilized for this study: 1. Automated exposure control 2. Adjustment of the mA and/or kV according to patient size 3. Use of iterative reconstruction technique FINDINGS: Trace anterolisthesis of L3 on L4. Vertebral body heights are preserved. Mild L3-4 disc height loss. Mild L2-3 disc height loss. Mild facet degenerative changes L3-4 and below. Distention of the bladder can be seen with voluntary or involuntary causes of urinary retention. IMPRESSION: 1. No acute fracture or subluxation of the lumbar spine. 2. Distention of the bladder can be seen with voluntary or involuntary causes of urinary retention. Electronically signed by: Michel Galvan MD (06/29/2021 3:08 PM) [email or web address] PROCEDURE: ANKLE RIGHT 3V XR EXAM OF ANKLE_RIGHT 3VIEWS, XR KNEE 3 VIEWS_RT Clinical indications: Reason: fall /pain. Right ankle: No acute fracture or dislocation or osteolytic process is evident. The mortise ankle joint is intact. Right knee: No acute fracture or dislocation or lytic process is seen. No right knee joint effusion is apparent. IMPRESSION: No acute osseous abnormality is evident. Electronically signed by: Blake Mcnamara MD (06/29/2021 2:39 PM) [id number] PROCEDURE: SHOULDER 2+V RIGHT EXAM: 3 Views Right Shoulder DATE: 06/29/2021 2:08 PM INDICATION: Reason: fall / Spl. Instructions: / History: COMPARISON: No Prior FINDINGS: There is no evidence for acute fracture or dislocation. AC joint is congruent. Humeral head is not high riding. Patchy opacities medial right lung base possibly atelectasis although developing consolidation contusion could have this appearance. IMPRESSION: 1. No acute fracture or dislocation. 2. Patchy opacities medial right lung base possibly atelectasis although developing consolidation contusion could have this appearance. Electronically signed by: Michel Galvan MD (06/29/2021 2:09 PM) [id number] PROCEDURE: HIP RIGHT 2V WITH PELVIS XR BILATERAL HIP (WITH OR WITHOUT PELVIS) 2 VIEWS_RIGHT Clinical indications: Reason: fall /pain. Findings: No acute fracture or dislocation or osteolytic process is evident. IMPRESSION: No acute osseous abnormality is evident. Electronically signed by: Blake Mcnamara MD (06/29/2021 2:38 PM) [id number] PROCEDURE: CT HEAD AND CERVICAL SPINE WO EXAM: CT HEAD WITHOUT IV CONTRAST CLINICAL HISTORY: Reason: fall / Spl. Instructions: / History: COMPARISON: None. TECHNIQUE: Routine CT of the head without contrast. Soft tissues and bone windows were reviewed. PQRS compliance statement - One or more of the following individualized dose reduction techniques were utilized for this study: 1. Automated exposure control 2. Adjustment of the mA and/or kV according to patient size 3. Use of iterative reconstruction technique FINDINGS: There is no evidence of hemorrhage, mass or extra-axial fluid collection. Gimenez-white differentiation is maintained with no evidence of edema. There is no mass effect or shift of the intracranial structures. The ventricles, basilar cisterns and cortical sulci are normal in size and c onfiguration for the patients stated age. The cerebellum and brainstem are unremarkable. The calvarium demonstrates no evidence of fracture or focal lesion. Thickening of the maxillary sinuses. Otherwise there is normal aeration of the visualized paranasal sinuses and mastoid air cells. The visualized portions of the orbits are normal. IMPRESSION: 1. No evidence for acute intracranial process. 2. Thickening of the maxillary sinuses, likely sinusitis. EXAM: CT CERVICAL SPINE WITHOUT IV CONTRAST CLINICAL HISTORY: Reason: fall / Spl. Instructions: / History: COMPARISON: None available. TECHNIQUE: Helical CT of the cervical spine was performed. Axial, coronal and sagittal reformatted images were also performed. PQRS compliance statement - One or more of the following individualized dose reduction techniques were utilized for this study: 1. Automated exposure control 2. Adjustment of the mA and/or kV according to patient size 3. Use of iterative reconstruction technique FINDINGS: Vertebral body heights are preserved. No spondylolisthesis. Mild C5-6 and C6-7 disc height loss with small posterior disc osteophyte complexes result in mild to moderate central canal stenosis at these levels. IMPRESSION: 1. Multilevel spondylosis as above 2. Negative acute fracture or subluxation. Electronically signed by: Michel Galvan MD (06/29/2021 3:04 PM) UICRAD2 (ADRIANNE AREVALO) Heart Score: C/O Chest Pain: No (ADRIANNE AREVALO) Course & Med Decision Making: Course & Med Decision Making Pertinent Labs and Imaging studies reviewed. (See chart for details) Patient experienced a mechanical fall at home and now has multiple complaints of pain. CT head, C-spine, L-spine as well as x-ray images will be obtained. Patient treated with ketorolac here in the department. Patient discharged home with tramadol, Norflex and instruction to use [id number] NSAID. She should follow with her primary care provider regarding her chronic fibromyalgia pain. She may return to the emergency department if she develops any new symptoms. Patient and at bedside understand and are agreeable to discharge plan. (ADRIANNE AREVALO) Dragon Disclaimer: Dragon Disclaimer: This electronic medical record was generated, in whole or in part, using a voice recognition dictation system. (ADRIANNE AREVALO) Attending Co-Sign The patient was seen and interviewed as well as examined at the bedside. The chart was reviewed. The case was discussed. Agree with the plan of care. (DAGO OLIVIA DO) Departure Departure: Impression: Primary Impression: Multiple contusions Additional Impression: Chronic migraine Disposition: HOME / SELF CARE / HOMELESS Condition: STABLE Referrals: ALESSANDRA COSTELLO (PCP) Patient Instructions: Contusion, [id number] Additional Instructions: Take tramadol every six hours as needed for pain. Take norflex every 12 hours for muscle spasm. Take naproxen every 8-12 hours. Return to the emergency department if you develop new symptoms. Scripts Tramadol Hcl (TRAMADOL HCL) 50 Mg Tablet 50 MG PO PRN Q6HRS PRN for PAIN, #10 TAB Prov: ADRIANNE AREVALO 06/29/21 Orphenadrine Citrate (ORPHENADRINE CITRATE) 100 Mg Tablet.er 1 TAB PO BID for muscle spasm, #20 TAB 1 Refill Prov: ADRIANNE AREVALO 06/29/21 ADRIANNE AREVALO Jun 29, 2021 14:35 DAGO OLIVIA DO Jun 30, 2021 15:42
--- NOTE | 2021-06-29 14:41 | RAD ---
XR BILATERAL HIP (WITH OR WITHOUT PELVIS) 2 VIEWS_RIGHT Clinical indications: Reason: fall /pain. Findings: No acute fracture or dislocation or osteolytic process is evident. IMPRESSION: No acute osseous abnormality is evident. Electronically signed by: Blake Mcnamara MD (06/29/2021 2:38 PM) [id number]
--- NOTE | 2021-06-29 14:42 | RAD ---
XR EXAM OF ANKLE_RIGHT 3VIEWS, XR KNEE 3 VIEWS_RT Clinical indications: Reason: fall /pain. Right ankle: No acute fracture or dislocation or osteolytic process is evident. The mortise ankle alex nt is intact. Right knee: No acute fracture or dislocation or lytic process is seen. No right knee joint effusion i s apparent. IMPRESSION: No acute osseous abnormality is evident. Electronically signed by: Blake Mcnamara MD (06/29/2021 2:39 PM) [id number]
--- NOTE | 2021-06-29 15:07 | RAD ---
EXAM: CT HEAD WITHOUT IV CONTRAST CLINICAL HISTORY: Reason: fall / Spl. Instructions: / History: COMPARISON: None. TECHNIQUE: Routine CT of the head without contrast. Soft tissues and bone windows were reviewed. PQRS compliance statement - One or more of the following individualized dose reduction techniques wer e utilized for this study: 1. Automated exposure control 2. Adjustment of the mA and/or kV according to patient size 3. Use of iterative reconstruction technique FINDINGS: There is no evidence of hemorrhage, mass or extra-axial fluid collection. Gimenez-white differentiation is maintained with no evidence of edema. There is no mass effect or shift of the intracranial structures. The ventricles, basilar cisterns and cortical sulci are normal in size and configuration for the anamika ents stated age. The cerebellum and brainstem are unremarkable. The calvarium demonstrates no evidence of fracture or focal lesion. Thickening of the maxillary sinuses. Otherwise there is normal aeration of the visualized paranasal s inuses and mastoid air cells. The visualized portions of the orbits are normal. IMPRESSION: 1. No evidence for acute intracranial process. 2. Thickening of the maxillary sinuses, likely sinusitis. EXAM: CT CERVICAL SPINE WITHOUT IV CONTRAST CLINICAL HISTORY: Reason: fall / Spl. Instructions: / History: COMPARISON: None available. TECHNIQUE: Helical CT of the cervical spine was performed. Axial, coronal and sagittal reformatted im ages were also performed. PQRS compliance statement - One or more of the following individualized dose reduction techniques wer e utilized for this study: 1. Automated exposure control 2. Adjustment of the mA and/or kV according to patient size 3. Use of iterative reconstruction technique FINDINGS: Vertebral body heights are preserved. No spondylolisthesis. Mild C5-6 and C6-7 disc height loss with small posterior disc osteophyte complexes result in mild to moderate central canal stenosis at these levels. IMPRESSION: 1. Multilevel spondylosis as above 2. Negative acute fracture or subluxation. Electronically signed by: Michel Galvan MD (06/29/2021 3:04 PM) [email or web address]
--- NOTE | 2021-06-29 15:10 | RAD ---
EXAM: CT lumbar spine without IV contrast CLINICAL HISTORY:Reason: FALL, LOW BACK PAIN / Spl. Instructions: / History: COMPARISON: None available. TECHNIQUE: Helical CT was performed through the lumbar spine. Axial, coronal and sagittal reformatted images were generated. PQRS compliance statement - One or more of the following individualized dose reduction techniques wer e utilized for this study: 1. Automated exposure control 2. Adjustment of the mA and/or kV according to patient size 3. Use of iterative reconstruction technique FINDINGS: Trace anterolisthesis of L3 on L4. Vertebral body heights are preserved. Mild L3-4 disc height loss. Mild L2-3 disc height loss. Mild facet degenerative changes L3-4 and below. Distention of the bladder can be seen with voluntary or involuntary causes of urinary retention. IMPRESSION: 1. No acute fracture or subluxation of the lumbar spine. 2. Distention of the bladder can be seen with voluntary or involuntary causes of urinary retention. Electronically signed by: Michel Galvan MD (06/29/2021 3:08 PM) [email or web address]
[2021-06-29 15:30] VITALS: BP 101/78
[2021-06-29] MEDS ORDERED: ORPH-16 PO (15:32)
[2021-06-29] MEDS ORDERED: TRAM50TA PO (15:32)
== END 2021-06-29 15:49 | disposition home or self-care (01) ==
LOC: ER 13:22
DX: S00.93XA Contusion of unspecified part of head, initial encounter (principal); S10.93XA Contusion of unspecified part of neck, initial encounter; S40.011A Contusion of right shoulder, initial encounter; S70.01XA Contusion of right hip, initial encounter; S80.01XA Contusion of right knee, initial encounter; S90.01XA Contusion of right ankle, initial encounter; G43.909 Migraine, unspecified, not intractable, without status migrainosus; F41.9 Anxiety disorder, unspecified; M79.7 Fibromyalgia; G89.29 Other chronic pain; M06.9 Rheumatoid arthritis, unspecified; F17.210 Nicotine dependence, cigarettes, uncomplicated; Z91.040 Latex allergy status; Z88.8 Allergy status to other drugs, medicaments and biological substances; W01.0XXA Fall on same level from slipping, tripping and stumbling without subsequent striking against object, initial encounter; Y93.89 Activity, other specified; Y92.098 Other place in other non-institutional residence as the place of occurrence of the external cause; Y99.8 Other external cause status
CPT/HCPCS: 70450; 72125; 72131; 73030; 73502; 73562; 73610; 96372; 99284; J1885

== ENCOUNTER → 2021-11-17 | Outpatient (CLI) | payer OTHER, MEDICARE ==
[~2021-11-17] MED LIST changes: +TRAM50TA PO
[2021-11-17 15:38] LABS: BASO # 0.1 x10^3/uL (0.0-0.2); BASO % 1 % (0-3); EOS # 0.2 x10^3/uL (0.0-0.7); EOS % 2 % (0-3); HEMATOCRIT 41.9 % (36.0-47.0); HEMOGLOBIN 14.1 g/dL (12.0-15.5); LYMPH # 3.8 x10^3/uL (1.0-4.8); LYMPH % 39 % (24-48); MEAN CORPUSCULAR HEMOGLOBIN 31 pg (25-35); MEAN CORPUSCULAR HGB CONC 34 g/dL (31-37); MEAN CORPUSCULAR VOLUME 92 fL (79-100); MONO # 0.4 x10^3/uL (0.0-1.1); MONO % 4 % (0-9); NEUT # 5.3 x10^3uL (1.8-7.7); NEUT % 55 % (31-73); PLATELET COUNT 297 x10^3/uL (140-400); RED BLOOD COUNT 4.56 x10^6/uL (3.50-5.40); RED CELL DISTRIBUTION WIDTH 13.5 % (11.5-14.5); WHITE BLOOD COUNT 9.7 x10^3/uL (4.0-11.0)
[2021-11-17 16:36] LABS: SEDIMENTATION RATE 3 (0-25)
[2021-11-17 23:14] LABS: TRANSFERRIN 229 mg/dL (192-364)
[2021-11-18 01:15] LABS: FSH 89.9 mIU/mL (.); LUTEINIZING HORMONE 43.2 mIU/mL (.)
[2021-11-18 18:20] LABS: FREE T4 0.83 ng/dL (0.76-1.46); THYROID STIM HORMONE (TSH) 1.458 uIU/mL (0.358-3.740)
[2021-11-19 19:08] LABS: ANA INTERP Negative (.)
== END ==
LOC: LAB 13:33
PROVIDERS: ATTEND Family Medicine
DX: M79.7 Fibromyalgia (principal); M25.50 Pain in unspecified joint; F98.8 Other specified behavioral and emotional disorders with onset usually occurring in childhood and adolescence; Z87.898 Personal history of other specified conditions; Z84.89 Family history of other specified conditions
CPT/HCPCS: 36415; 83001; 83002; 83540; 84439; 84443; 84466; 85025; 85651; 86038; 86140